=== PATIENT | male | born 1955 | race Caucasian/White ===

== ENCOUNTER 2025-03-11 14:06 | Outpatient (CLI) | payer MEDICARE, SELFPAY ==
--- NOTE | 2025-03-11 14:10 | XR_ITS ---
WS: [id number] SCREENING DEXA SCAN [employer] CLINICAL INFORMATION: OTHER SPECIFIED DISORDERS OF BD STRUCTURES COMPARISON: None. FINDINGS: The L1-L4 bone mineral density measures 1.294 g/cm2. This corresponds to a T score score of 0.6 and Z score of 0.8. Left femoral neck bone mineral density measures 0.768 g/cm2. This corresponds to a T score of -2.3 and Z score of -1.8. Right femoral neck bone mineral density measures 0.732 g/cm2. This corresponds to a T score -2.6of and Z score of -2.0. Mean femoral neck bone mineral density measures 0.750 g/cm2. This corresponds to a T score of -2.4 and Z score of -1.9. XR/XR DEXA axial skeleton* [id number] IMPRESSION: Normal bone mineralization lumbar spine. Osteoporosis femoral necks at the lowe r end of the range Patient's FRAX calculated 10 year probability for major osteoporotic fracture i s 12.2% and osteoporotic hip fracture is 5.0%.
== END 2025-03-11 14:07 | disposition home or self-care (01) ==
LOC: RAD 14:08
PROVIDERS: PCP Family Medicine; Visit Provider Family Medicine
DX: M85.88 Other specified disorders of bone density and structure, other site (principal); M81.0 Age-related osteoporosis without current pathological fracture
CPT/HCPCS: 77080

== ENCOUNTER → 2025-06-12 10:20 | Outpatient (BNVA) | payer MEDICARE, SELFPAY | PROVIDERS: PCP Family Medicine; Referring Provider Family Medicine; Visit Provider Internal Medicine | DX: N25.81 Secondary hyperparathyroidism of renal origin (principal); E55.9 Vitamin D deficiency, unspecified; N18.32 Chronic kidney disease, stage 3b; M81.0 Age-related osteoporosis without current pathological fracture | CPT/HCPCS: 99204 ==